=== PATIENT | male | born 1975 | race Caucasian/White ===

== ENCOUNTER 2018-03-18 12:35 | Emergency (ER) | payer MEDICAID ==
[2018-03-18] MEDS ORDERED: Ibuprofen TAB* 600 MG PO ONE (12:40)
--- NOTE | 2018-03-18 13:26 | RAD ---
INDICATION: Nail foreign body COMPARISON: None TECHNIQUE: AP, lateral, and oblique views were obtained. FINDINGS: There is a nail in the foreign bodies at the level of the junction of the middle and distal third of the femur. The depth is approximately 6 cm at the nail head which is closest to the anterior skin surface. The nail projects over the diaphysis in both projections. There is no bony defect, however. There is no plain radiographic evidence of a hematoma. Additional radiodensities projecting over the upper posterior medial thigh which may be artifact. IMPRESSION: NAIL FOREIGN BODY.
--- NOTE | 2018-03-18 13:47 | ED ---
Skin Complaint <Arjun Macdonald - Last Filed: 03/18/18 21:20> - HPI Summary HPI Summary: Patient is a 50-year-old male resenting to the ED with an injury to the left anterior thigh. He states a nail from a nail gun protruded through the inner thigh and remains under the skin. Patient is a smoker. Last alcohol on this date. Drinks alcohol daily. 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 On Suboxone daily, but takes no other medications. He is otherwise healthy. Unknown tetanus update. - History of Current Complaint Hx Obtained From: Patient Onset/Duration: Started Hours Ago Skin Exposure Onset/Duration: Hours Ago Timing: Constant Onset Severity: Moderate Current Severity: Moderate Pain Intensity: 10 Pain Scale Used: 0-10 Numeric Skin Location: Leg - left leg Aggravating Symptom(s): Nothing Associated Signs & Symptoms: Negative Related History: Foreign Body <Ela Navarro - Last Filed: 03/19/18 05:49> - History of Current Complaint Chief Complaint: EDExtremityLower Time Seen by Provider: 03/18/18 12:37 Stated Complaint: LT LEG INJURY - Allergy/Home Medications Allergies/Adverse Reactions: Allergies Allergy/AdvReac Type Severity Reaction Status Date / Time No Known Allergies Allergy Verified 03/18/18 12:51 Home Medications: Home Medications NK [No Home Medications Reported] 03/18/18 [History Confirmed 03/18/18] PMH/Surg Hx/FS Hx/Imm Hx Previously Healthy: Yes - Immunization History Hx Pertussis Vaccination: No Immunizations Up to Date: Unable to Obtain/Confirm Infectious Disease History: No Infectious Disease History: Denies: Traveled Outside the [place] in Last 30 Days - Social History Occupation: Employed Full-time Lives: Alone Alcohol Use: Daily Hx Substance Use: Yes Substance Use Type: Reports: Marijuana Hx Tobacco Use: Yes Smoking Status (MU): Heavy Every Day Tobacco Smoker <Ela Navarro - Last Filed: 03/19/18 05:49> Review of Systems Constitutional: Negative Negative: Fever, Chills, Fatigue Negative: Palpitations, Chest Pain Negative: Shortness Of Breath, Cough Genitourinary: Negative Positive: no symptoms reported, see HPI Positive: Arthralgia Positive: Other - small puncture to anterior left leg Neurological: Negative All Other Systems Reviewed And Are Negative: Yes <Ela Navarro - Last Filed: 03/19/18 05:49> Physical Exam Vital Signs On Initial Exam: Initial Vitals Pulse BP Pulse Ox 69 133/92 97 03/18/18 12:42 03/18/18 12:42 03/18/18 12:42 <TorresArjun - Last Filed: 03/18/18 21:20> Triage Information Reviewed: Yes Vital Signs On Initial Exam: Initial Vitals Pulse BP Pulse Ox 69 133/92 97 03/18/18 12:42 03/18/18 12:42 03/18/18 12:42 Vital Signs Reviewed: Yes Appearance: Positive: Well-Appearing, Well-Nourished Skin: Positive: Warm, Skin Color Reflects Adequate Perfusion Respiratory/Lung Sounds: Positive: Clear to Auscultation, Breath Sounds Present Cardiovascular: Positive: RRR, Pulses are Symmetrical in both Upper and Lower Extremities Musculoskeletal: Positive: Normal, Strength/ROM Intact Neurological: Positive: Speech Normal Psychiatric: Positive: Normal AVPU Assessment: Alert <Ela Navarro - Last Filed: 03/19/18 05:49> Diagnostics - Vital Signs Vital Signs Temp Pulse Resp BP Pulse Ox 03/18/18 18:52 131/87 03/18/18 18:22 135/82 03/18/18 18:00 63 98 03/18/18 17:52 54 142/95 98 03/18/18 17:23 62 97 03/18/18 17:22 55 151/101 98 03/18/18 14:00 57 97 03/18/18 13:04 62 98 03/18/18 12:45 99.3 F 69 18 133/92 96 03/18/18 12:44 60 99 03/18/18 12:42 69 133/92 97 - Laboratory Lab Results: Lab Results 03/18/18 Range/Units 15:24 Sodium 139 (135-145) mmol/L Potassium 3.8 (3.5-5.0) mmol/L Chloride 102 (101-111) mmol/L Carbon Dioxide 30 (22-32) mmol/L Anion Gap 7 (2-11) mmol/L BUN 5 L (6-24) mg/dL Creatinine 0.90 (0.67-1.17) mg/dL Est GFR ( Amer) 113.1 (>60) Est GFR (Non-Af Amer) 93.5 (>60) BUN/Creatinine Ratio 5.6 L (8-20) Glucose 98 (70-100) mg/dL Calcium 9.0 (8.6-10.3) mg/dL Total Bilirubin 0.70 (0.2-1.0) mg/dL AST 70 H (13-39) U/L ALT 45 (7-52) U/L Alkaline Phosphatase 61 (34-104) U/L Total Protein 7.3 (6.4-8.9) g/dL Albumin 4.0 (3.2-5.2) g/dL Globulin 3.3 (2-4) g/dL Albumin/Globulin Ratio 1.2 (1-3) Result Diagrams: 03/18/18 15:24 Lab Statement: Any lab studies that have been ordered have been reviewed, and results considered in the medical decision making process. <Arjun Macdonald - Last Filed: 03/18/18 21:20> - Vital Signs Vital Signs Temp Pulse Resp BP Pulse Ox 03/18/18 12:45 99.3 F 69 18 133/92 96 03/18/18 12:44 60 99 03/18/18 12:42 69 133/92 97 - Laboratory Result Diagrams: 03/18/18 15:24 Lab Statement: Any lab studies that have been ordered have been reviewed, and results considered in the medical decision making process. <Ela Navarro - Last Filed: 03/19/18 05:49> Course/Dx - Physician Notifications Discussed Care Of Patient With: Evaristo Barron - ortho Time Discussed With Above Provider: 21:16 <Arjun Macdonald - Last Filed: 03/18/18 21:20> - Course Course Of Treatment: During the course of treatment, the patient is evaluated for foreign body in the left anterior thigh. X-ray obtained which shows: FINDINGS: There is a nail in the foreign bodies at the level of the junction of the middle. and distal third of the femur. The depth is approximately 6 cm at the nail head which is. closest to the anterior skin surface. The nail projects over the diaphysis in both. projections. There is no bony defect, however. There is no plain radiographic evidence of. a hematoma. Additional radiodensities projecting over the upper posterior medial thigh. which may be artifact. IMPRESSION: NAIL FOREIGN BODY. Discussed case with Dr. Barron who agrees to take him to the OR for FB removal. He is given 1 g cefazolin, tetanus updated, IV placed. Patient is awaiting for OR. <Ela Navarro - Last Filed: 03/19/18 05:49> - Diagnoses Provider Diagnoses: Foreign body of left thigh Discharge - Sign-Out/Discharge Documenting (check all that apply): Discharge/Admit/Transfer - Billing Disposition and Condition Condition: STABLE Disposition: Home <Arjun Macdonald - Last Filed: 03/18/18 21:20> - Sign-Out/Discharge Documenting (check all that apply): Discharge/Admit/Transfer - Billing Disposition and Condition Condition: STABLE Disposition: Home <lEa Navarro - Last Filed: 03/19/18 05:49> - Discharge Plan Condition: Stable Disposition: HOME Patient Education Materials: Soft Tissue Foreign Body (ED) Referrals: No Primary Care Phys,NOPCP [Primary Care Provider] - Evaristo Barron MD [Medical Doctor] - Additional Instructions: You will be called tomorrow morning at [phone] with scheduled surgery time for tomorrow. Take ibuprofen for pain. You may alternatively follow-up at the orthopedics clinic at the number provided in discharge paperwork to schedule surgery at another time. Return to the ED for any new or worsening symptoms.
[2018-03-18] MEDS ORDERED: Tetan/Diph/Pertus SYR(Tdap)* 0.5 ML SYR(BOOSTRIX) use SYR IM ONE (14:22)
[2018-03-18] MEDS ORDERED: ceFAZolin 1 GM in Dextrose (*) 1 GM/50 ML BAG IVPB ONE (14:22)
[2018-03-18] MEDS ORDERED: Famotidine IV* 10 MG/ML 2 ML (20 mg) IV ONE (15:13)
[2018-03-18] MEDS ORDERED: Famotidine IV* 10 MG/ML 2 ML (20 mg) ONE (15:16)
[2018-03-18 15:50] LABS: EGFR Non-African American 93.5 (>60)
[2018-03-18] MEDS ORDERED: Ondansetron TAB* 4 MG PO ONE (16:18)
[2018-03-18] MEDS ORDERED: Buffered Lidocaine 0.9% SYRIN* 5 ML/SYR SYRINGE INTRADERM ONE (16:18)
[2018-03-18] MEDS ORDERED: Dexamethasone TAB* 4 MG PO ONE (16:18)
[2018-03-18] MEDS ORDERED: Naloxone* 0.4 MG/ML 1 ML VIAL IV PRN (16:20)
[2018-03-18] MEDS ORDERED: DiMENhydriNATE IV* 50 MG/ML VIAL IV PUSH PRN (16:20)
[2018-03-18] MEDS ORDERED: PROCHLORPERAZINE INJ 5 MG/ML 2 ML VIAL IV PRN (16:20)
[2018-03-18] MEDS ORDERED: Acetaminophen IV 1GM/100ML * 1,000 MG/100 ML VIAL IVPB ONE (16:20)
--- NOTE | 2018-03-18 16:50 | HP ---
HISTORY AND PHYSICAL: DATE OF ADMISSION: 03/18/18 CHIEF COMPLAINT: Left thigh nail gun injury. HISTORY OF PRESENT ILLNESS: Emile is 42. Earlier today he had the nail gun fall off the top of the ladder, he grabbed it as it was falling, but it came down and deployed a nail into the left thigh. He was doing some paneling at that time. He denies any numbness or tingling. He denies any issues anywhere else. He does have a history of narcotic abuse and takes Suboxone. He has a history of alcohol addiction and he had had some liquor just prior to this at 11 o'clock this morning. Otherwise, he denies numbness or tingling. No other issues. PAST MEDICAL HISTORY: Narcotic and alcohol abuse, he is on Suboxone. 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 He denies any other significant medical history. PAST SURGICAL HISTORY: Anterior cervical spine surgery and then right clavicle surgery. MEDICATIONS: Reviewed. ALLERGIES: No known drug allergies. FAMILY HISTORY: No problems with bleeding or anesthesia. SOCIAL HISTORY: See above related to the alcohol and narcotic use. He is a smoker. He is on Suboxone. REVIEW OF SYSTEMS: Full review of systems was conducted and is negative except for the issues mentioned above. PHYSICAL EXAMINATION GENERAL: Awake and alert, mild distress. NEUROLOGICAL: He had intact light touch sensation distally. The tibialis anterior and gastroc soleus complex have good motor function. He is able to wiggle all of the toes. VASCULAR: The foot is warm and well perfused. Pulses are palpable. SKIN: There is a puncture wound that filled up in the left anteromedial thigh, in the distal third. There is no signs of erythema and no signs of infection. IMAGING: X-rays of the left femur were reviewed. The nail is sitting just medial to the femur bone in the diametaphyseal region of the distal femur. It extends posterior to the femur a couple of centimeters. IMPRESSION: Left thigh nail gun injury with retained nail in the distal thigh, sitting just medial to the femur at the diametaphyseal area. PLAN: I have asked the emergency room to give him a dose of antibiotics and to make sure his tetanus is up-to-date. He has been made n.p.o. We will plan to remove the nail once there is some operating room availability here in a few hours. He understands that this will mean a larger incision as the nail is down deep near the medial femur so it will have to be removed in the operating room. [id number]/[facility] #: [id number] TED
[2018-03-18] MEDS ORDERED: Ketorolac INJ* 30 MG/ML 1 ML VIAL IV PUSH ONE (17:14)
[2018-03-18] MEDS ORDERED: Ketorolac INJ* 30 MG/ML 1 ML VIAL ONE (17:17)
[2018-03-18] MEDS ORDERED: Buprenorphine/Naloxone 8-2 MG SL TAB* 1 TAB PO ONE (18:10)
--- NOTE | 2018-03-18 21:14 | PN ---
Progress Note - Progress Note Date of Service: 03/18/18 Note: Dr. Barron called to inform ED that he would not be able to take patient in OR tonight. Offered patient choice of admission with surgery tomorrow, or patient could be discharged home tonight and called tomorrow a.m. with surgery time for same day outpatient surgery. Patient stated that he would stay if he could go outside and smoke a cigarette. When patient told that that was not possible and was offered a nicotine patch, patient refused nicotine patch and opted to go home. Physical exam before discharge: Pulses present distally in left lower extremity. Active flexion and extension of left ankle and left knee intact, with pain in left thigh starting at around 90 flexion of left knee. Thigh and calf both soft. Dr. Barron indicated ibuprofen for pain management.
[2018-03-18 22:12] VITALS: BP 135/82
--- NOTE | 2018-03-19 20:59 | RAD ---
CPT II Codes: G9500 INDICATION: Male versus right femoral shaft TECHNIQUE: Intraoperative fluoroscopy was provided during removal of a right femur nail. FINDINGS: 2 spot films depict a nail in the right femur. Fluoroscopy time: 7.5 seconds IMPRESSION: As above.
== END 2018-03-18 21:30 | disposition home or self-care (01) ==
LOC: ED 12:35
DX: S71.142A Puncture wound with foreign body, left thigh, initial encounter (principal); W45.0XXA Nail entering through skin, initial encounter; Y92.9 Unspecified place or not applicable; F17.200 Nicotine dependence, unspecified, uncomplicated; Z23 Encounter for immunization
CPT/HCPCS: 36415; 76000; 80053; 90471; 90715; 96365; 96375; 99283; A9270-GY; J0690; J1885

== ENCOUNTER 2018-03-19 12:01 | Day surgery (SDC) | payer MEDICAID ==
[2018-03-19] MEDS ORDERED: ceFAZolin 2 GM PREMIX (*) 2 GM/50 ML BAG IVPB ONE (13:25)
[2018-03-19] MEDS ORDERED: Ketorolac INJ* 30 MG/ML 1 ML VIAL ONE (13:49)
[2018-03-19] MEDS ORDERED: Ondansetron ODT TAB* 4 MG ONE (14:16)
[2018-03-19] MEDS ORDERED: Propofol* 10 MG/ML 20 ML BTL IV PUSH ONE ×2 (14:16→15:26)
[2018-03-19] MEDS ORDERED: Lidocaine 2% PF * 5 ML VIAL ONE ×2 (14:16→16:29)
[2018-03-19] MEDS ORDERED: Dexamethasone IV* 4 MG/ML 1 ML (4 MG) ONE (14:16)
[2018-03-19] MEDS ORDERED: Midazolam* 1 MG/ML 10 ML VIAL (10 MG) ONE (14:17)
[2018-03-19] MEDS ORDERED: KETAMINE HCL* 50 MG/ML 10 ML VIAL ONE (14:17)
[2018-03-19] MEDS ORDERED: Buprenorphine/Naloxone 8-2 MG SL TAB* 1 TAB PO SCH (15:00)
[2018-03-19] MEDS ORDERED: Lidocain 1% EPI 1:100,000 * 30 ML MDV ONE (15:04)
[2018-03-19] MEDS ORDERED: Bupivacaine 0.5% SDV PF* 30ML VIAL ONE ×2 (15:04→16:28)
[2018-03-19] MEDS ORDERED: Bupivacaine 0.5% PF 10 ML VIAL INJ ONE (16:29)
[2018-03-19] MEDS ORDERED: Naloxone* 0.4 MG/ML 1 ML VIAL IV PRN (16:36)
[2018-03-19] MEDS ORDERED: Acetaminophen IV 1GM/100ML * 1,000 MG/100 ML VIAL IVPB ONE (16:51)
[2018-03-19] MEDS ORDERED: Gabapentin CAP(*) 300 MG PO PRN (16:54)
[2018-03-19] MEDS ORDERED: Acetaminophen IV 1GM/100ML * 100 ML ONE (17:20)
[2018-03-19] MEDS ORDERED: Gabapentin CAP(*) 300 MG ONE (18:01)
[2018-03-19 18:19] VITALS: BP 150/98
--- NOTE | 2018-03-20 11:47 | OP ---
DATE OF OPERATION: 03/19/18 [facility] DATE OF : 79 SURGEON: Ruslan Hamilton MD [employer] INTERNSHIP: MARVA Dong ANESTHESIA: General. PRE-OP DIAGNOSIS: Foreign body, left thigh. POST-OP DIAGNOSIS: Foreign body, left thigh. OPERATIVE PROCEDURE: Removal foreign body, left thigh. ESTIMATED BLOOD LOSS: Minimal. COMPLICATIONS: None. SUMMARY: Mr. Quiles is a 42-year-old male who yesterday had a nail gun fall off the top of a ladder and he managed to grab it as it was falling, but it still struck and deployed a nail into his left thigh. He was seen by my partner , Dr. Evaristo Barron and at that time the intent was to take him to the OR. Unfortunately, an emergency neurosurgery case had bumped him and after waiting until after 9 p.m., the decision was made to add him on to today's schedule. Dr. Barron had contacted me last night and asked if I would add him on if I was finished first with my schedule and I discussed with him that would be something that I would be able to do. Early today, I introduced myself to Mr. Quiles and discussed with him that we will be able to get him going earlier as I had finished my OR schedule and he was pleased to be able to get this done on an earlier basis. I discussed with him risk of surgery such as infection and neurovascular injury as the placement of the nail was right along the inner side of the distal left thigh. DESCRIPTION OF PROCEDURE: The patient was brought to the OR and general anesthesia was introduced. Left leg was prepped and then draped. Skin from the puncture wound was opened and dried eschar was generally debrided, so that I could place up a blunt needle downwards along the track and inject local to hopefully open the tract. My intent initially was to place a blunt trocar down along the tract and then using ultrasound guidance try and use one of this suture passers that we use for meniscal repaires to hook the nail head. After giving local, ultrasound was used to try and localize the nail, but I had significant difficulty trying to find the nail above the puncture site. Considering that I had tried for approximately half an hour with US, this was abandoned and incision was made 2 cm above the puncture wound, so that I would have a nice anterior medial approach coming either through his vastus medials or through the junction of the vastus medials and extensors. Skin was then incised and infiltrated with additional local. Coming downwards, I was able to bluntly dissect the fat and come down right on the top of the fascia. Fascia was sharply opened and then finger tip dissection was use to come down right towards the medial side of the femur. Again, I had trouble trying to find a nail as I could not palpate it in that area. C-arm was then called and it could be seen that the nail was inferior to where I was palpating. The nail was inferior to the puncture area and rotated 90 degrees giving the impression that it was sitting higher when actually it was rotated and sitting lower. My initial incision was about a 1.5 cm and this was extended by another 1.5 cm distally. This gave me enough room to palpate downwards and continue along that same plane and this time using C-arm guidance, I was able to find the side of the nail and then came upwards the tip of the nail. I was unable to rotate the tip upwards, so that it was facing me and I placed a small snap and pulled the nail out. Wound was then irrigated using a bulb syringe, and the fascia was closed using just 1-0 Vicryl. Several 2-0 stitches were placed in the subcutaneous tissues, and the incision made was closed using norris. Puncture wound was allowed to remain open to allow for further drainage. Sterile dressing was applied. Patient was then awakened in the OR and was stable and transfer to the recovery room. DISPOSITION/DISCHARGE SUMMARY: Mr. Quiles is a 42-year-old male who just had a nail removed from his left thigh. He tolerated procedure well. There were no complications. He is currently rolling into the recovery room. Once he can tolerate p.o., has his pain well controlled, and can void, he will be discharge to home. Prescription for Motrin 800 mg q.6 hours will be e-scribed in. He may supplement this with Tylenol 1 g p.o. t.i.d. p.r.n. He has a history of substance abuse and has been on Suboxone. He has missed his last 2 visits with his Suboxone provider and I had called her earlier and she will see him this week if he calls to reschedule. This way he can get back on track with his Suboxone and hopefully make sure he does not get into other troubles. I'd like to see him in approximately 10 days, remove his norris and make sure he is doing well. If there are any problems in the meanwhile or anything odd should occur, there are instructions to give the office a call. [id number]/[facility] #: [id number] TED
== END 2018-03-19 18:38 | disposition home or self-care (01) ==
LOC: OR 12:01
PROVIDERS: ATTEND Orthopaedic Surgery Hand Surgery
DX: S71.142A Puncture wound with foreign body, left thigh, initial encounter (principal); Z72.0 Tobacco use; F10.21 Alcohol dependence, in remission; F11.21 Opioid dependence, in remission; W29.4XXA Contact with nail gun, initial encounter; Y93.89 Activity, other specified; Y92.89 Other specified places as the place of occurrence of the external cause
CPT/HCPCS: 76000; 88300; A9270-GY; J0690; J1100; J1885; J2250; J2704